=== PATIENT | male | born 2005 | race Caucasian/White ===

== ENCOUNTER → 2024-11-06 06:48 | Outpatient (REF) | payer OTHER, SELFPAY ==
[2024-11-06 07:41] LABS: % Basophils 0.6 % (0-2); % Eosinophils 1.6 % (0-6); % Immature Granulocytes 0.4 % (0-0.5); % Lymphocytes 21.1 % (20.5-51.1); % Monocytes 8.2 % (1.7-9.3); % Neutrophils 68.1 % (42.2-75.2); Absolute Basophils 0.1 10^3/uL (0-0.2); Absolute Eosinophils 0.2 10^3/uL (0-0.7); Absolute Immature Granulocytes 0.1 10^3/uL (0-0.05); Absolute Lymphocytes 2.9 10^3/uL (1.2-3.4); Absolute Monocytes 1.1 10^3/uL (0.1-0.6); Absolute Neutrophils 9.5 10^3/uL (1.4-6.5); Hematocrit 40.9 % (39.0-52.0); Hemoglobin 13.4 g/dL (13.0-18.0); Mean Corp Hgb Conc. 32.8 g/dL (33.0-37.0); Mean Corpuscular Hgb 26.4 pg (27.0-31.0); Mean Corpuscular Volume 80.5 fL (80.0-94.0); Mean Platelet Volume 10.3 fL (7.4-10.4); Nucleated Red Blood Cells % 0 % (-); Platelet Count 389 10^3/uL (130-400); Red Blood Cell Count 5.08 10^6/uL (4.70-6.10); Red Cell Dist. Width 13.7 % (11.5-14.5); White Blood Cell Count 13.9 10^3/uL (4.8-10.8)
[2024-11-06 08:15] LABS: ALT (SGPT) 20 U/L (0-50); AST (SGOT) 17 U/L (17-59); Albumin 4.7 g/dl (3.5-5.0); Alkaline Phosphatase 83 U/L (38-126); Blood Urea Nitrogen 12 mg/dl (9-20); Calcium 9.8 mg/dl (8.4-10.2); Carbon Dioxide 26 mmol/L (22-30); Chloride 105 mmol/L (98-107); Glucose 100 mg/dl (70-99); Potassium 4.5 mmol/L (3.5-5.1); Sodium 141 mmol/L (135-145); Total Bilirubin 0.5 mg/dl (0.2-1.3); Total Protein 8.2 g/dl (6.3-8.2); eGFR > 60.00
[2024-11-06 09:12] LABS: Glycohemoglobin (HgbA1c) 5.4 % (4.0-5.6)
[2024-11-07 13:34] LABS: Syphilis/T. pallidum Ab Reflex Negative (Negative)
[2024-11-07 15:13] LABS: HIV Combo Negative (Negative)
[2024-11-07 19:44] LABS: HSV 1/2 Combined Screen, IgG 0.88 IV
== END ==
LOC: REG 06:48
PROVIDERS: ATTENDING PHYSICIAN Surgery
DX: S31.839A Unspecified open wound of anus, initial encounter (principal)
CPT/HCPCS: 36415; 80053; 83036; 85025; 86694; 86780; 87389

== ENCOUNTER 2024-11-21 06:14 | Day surgery (SDC) | payer OTHER, SELFPAY ==
[2024-11-21 07:46] VITALS: BMI 34.4
[2024-11-21 07:47] VITALS: BP 127/75
[2024-11-21] MEDS: TYLENOL 1000 MG PO (07:57)
[2024-11-21] MEDS: CELEBREX 200 MG PO (07:57)
[2024-11-21] MEDS: NORMOSOL-R/PLASMALYTE-A 1000 IV (07:57)
--- NOTE | 2024-11-21 11:19 | W.IMMPOSTOP ---
Surgical Immed Post Op Note
-
Primary Surgeon: Charly Paz MD
Assisting Surgeon: Marlon Cooper MD
Pre-op Diagnosis: Anal pain, chronic perianal wound
Post-op Diagnosis: Anal pain, chronic perianal wounds, chronic perineal wound, transsphincteric fistula x 3
Procedure Performed: Exam under anesthesia, biopsy of chronic wounds x 4, placement of seton drains x 3
Anesthesia Type: Sedation
Specimen / Cultures: Posterior perianal wound biopsy, posterior anal canal wound biopsy, anterior anal canal wound biopsy, perineal wound biopsy
Estimated Blood Loss: 10 mL
Complications: None
Operative Findings: Per op note; posterior perianal wound, 2 x 3 cm, just to the right of midline extending into ischiorectal space with fistula directed radially at the dentate line, biopsied and placed seton (about 1 cm of sphincter involvement);
anal ulcer in the posterior quadrant, 1.5 x 1.5 cm, just to the right of midline, superficial, no exposed internal sphincter muscle, biopsied; anterior midline anal ulcer about 1 cm x 1 cm, superficial, no exposed internal sphincter muscle,
biopsied; in the perianal region in the anterior midline, about 1 cm from the anal verge, identified an external opening with fistulous connection to the dentate line of the AML as well as to a perineal wound midway between the base of the scrotum
and the anus, about 12 cm from the anal verge; placed seton from the AML perianal opening to the AML opening at the dentate line (about 1-1.5 cm of sphincter involvement) and placed another from the AML perianal opening to the perineal wound;
biopsied the AML anal ulcer as well as the perineal wound; there was no proctitis; there were no abscesses, erythema or purulence
[2024-11-21 11:20] VITALS: BP 119/62
--- NOTE | 2024-11-21 11:26 | OR.RPT ---
Operative Report
Operative Report
DATE OF OPERATION: 11/21/2024
SURGEON: Charly Paz MD
PREOPERATIVE DIAGNOSIS: Anal pain, chronic perianal wound
POSTOPERATIVE DIAGNOSIS: Anal pain, chronic perianal wounds, chronic perineal wound, transsphincteric perianal fistula x 3
OPERATION: Exam under anesthesia, biopsy of chronic wounds x 4, placement of seton drains x 3
ASSISTANTS:
1. Marlon Cooper MD
ANESTHESIA: Sedation with local
ESTIMATED BLOOD LOSS: 10 mL
FINDINGS:
1. Chronic wound in the posterior perianal quadrant associated with transsphincteric fistula; wound biopsied and seton placed
2. Two ulcers at the anal verge in the posterior and anterior aspect without exposed sphincter; biopsied
3. Perianal wound midway between the anus and base of scrotum associated with transsphincteric fistula; additional external opening about 1 cm distal to the anal verge in the anterior midline and internal opening at the anterior dentate line; wound
biopsied and 2 setons placed between each opening
SPECIMENS:
1. Posterior perianal wound biopsy
2. Posterior anal canal wound biopsy
3. Anterior anal canal wound biopsy
4. Perineal wound biopsy
DRAINS: Setons x 3
COMPLICATIONS: None
INDICATIONS: The patient is a 19-year-old male who presented to me in my office for chronic nonhealing perianal wounds. In June 2024, he underwent incision and drainage of a perianal abscess. This wound never completely healed. He developed
another abscess that drained on its own. In the office, he was not able to tolerate an adequate exam due to pain. Therefore, the patient was recommended to have surgery for a complete anorectal exam as well as better identification of the wounds
and if there is any fistula involvement. The operation was discussed with the patient in detail, including the risks, benefits and alternatives. Risks described included, but not limited to bleeding, infection, urinary retention, damage to nearby
structures such as the anal sphincter, fecal incontinence, recurrence, need for seton placement and anesthetic risks. The patient understood and agreed to proceed. The consent was signed and placed in the chart.
PROCEDURE IN DETAIL: The patient was taken to the operating room. Sequential compression devices were placed bilaterally. The patient was placed on the operating table in prone position. Sedation was commenced without complication. Two seat belts
were secured around the legs and upper back. The buttocks were taped apart. The perineum was shaved, prepped and draped in the usual fashion. A time-out was performed verifying the correct patient, procedure, operative site, positioning, and
special equipment.
Local anesthesia used was a mixture of 60 mL of 0.25% Marcaine with epinephrine and 0.6 mg of dexamethasone. 40 mL was injected perianally and around the perineal wound at the beginning of the case. The anorectal exam was performed assessing all
four quadrants of the anal canal using Hill-Yepez retractors in progressively increasing size. There was no abscess and no masses in the anus or distal rectum. There was no proctitis. There were no concerning internal hemorrhoids.
Externally, there was a perianal wound in the posterior quadrant, just to the right of midline, adjacent to the intersphincteric groove and extending 2-3cm deep into the ischiorectal space. The external opening was about 2 x 3 cm in size. There
was granulation tissue, no purulence. This wound was biopsied using forceps and Metzenbaum scissors. Hemostasis was achieved with electrocautery. There was a superficial ulcer at the anal verge, extending from the edge of the internal sphincter
into the anal canal. This measured about 1.5 x 1.5 cm, also just to the right of midline. There was no exposed internal sphincter muscle. There was no purulence and there was minimal granulation tissue. This was biopsied with forceps and
Metzenbaum scissors, hemostasis was achieved with electrocautery.
There was another superficial ulcer at the anal verge in the anterior quadrant, similar in appearance to the ulcer located posteriorly. This was about 1 x 1 cm. There was no sphincter muscle exposed and no purulence. There was minimal granulation
tissue. This was biopsied with forceps and Metzenbaum scissors, hemostasis achieved with electrocautery. Just distal to this ulcer was a punctate opening 1 cm distal from the anal verge and separate from the ulcer. This was probed. This was
connected to the perineal wound as well as to an internal opening at the dentate line in the anterior aspect of the anal canal. The internal opening was discovered with the assistance of dilute hydroperoxide. The perineal wound measured about 5 cm
in length and 2 cm wide. This was about midway from the anus to the base of the scrotum. I estimated about 12 cm from the anal verge. There was an abundance of granulation tissue within the wound and a small skin bridge, but no purulence or
surrounding erythema. The wound was biopsied using forceps and Metzenbaum scissors, hemostasis achieved with electrocautery.
The posterior perianal wound was also probed and a fistula was identified with the internal opening at the dentate line oriented in the posterior quadrant. I estimated about 1 cm of sphincter involvement, but unclear as to how much internal versus
external sphincter due to the altered anatomy. I placed a seton using a blue vessel loop, which was secured to itself with 3 knots of 2-0 silk ties. I ensured that this was not too tight by passing the tip of my index finger underneath it.
Regarding the anterior fistula with 3 openings (i.e.�internal opening at the anterior dentate line, external opening 1 cm from the anal verge and external opening at the perineal wound), I placed 2 setons using blue vessel loops and secured them to
themselves with 2-0 silk ties. I ensured these were not too tight by being able to pass a finger underneath it. I discussed the likely etiologies with my partner, Dr. Cooper, and based on the appearance, we both agreed that this seems most
consistent with perianal Crohn's.
The remaining 20 mL of local were injected around the wounds. Hemostasis was reassessed once more using the small Hill-Yepez and was confirmed. At this point, the procedure was complete. All needle, sponge and instrument counts were correct. The
patient tolerated the procedure well and was transferred to the recovery room in stable condition with gauze dressing in place secured with silk tape.
Of note, Marlon Cooper MD, assistant prosecuting attorney, was necessary during this procedure for traction, countertraction, and exploratory purposes. I was present for the entire duration of the case.
DICTATED BY: Charly Paz MD
[2024-11-21 11:30] VITALS: BP 114/61
[2024-11-21 11:45] VITALS: BP 115/66
[2024-11-21 12:00] VITALS: BP 109/64
[2024-11-21 12:10] VITALS: BP 103/61
== END 2024-11-21 12:20 | disposition home or self-care (01) ==
LOC: SDS 06:14
PROVIDERS: ATTENDING PHYSICIAN Surgery
DX: S31.839A Unspecified open wound of anus, initial encounter (principal); X58.XXXA Exposure to other specified factors, initial encounter; K60.30 Anal fistula, unspecified; K62.89 Other specified diseases of anus and rectum
CPT/HCPCS: 46020; 88305; 88342

== ENCOUNTER → 2024-12-06 08:45 | Outpatient (REF) | payer OTHER, SELFPAY | LOC: MRI 3T 08:45 | PROVIDERS: ATTENDING PHYSICIAN Internal Medicine Gastroenterology; FAMILY PHYSICIAN Surgery | DX: K60.30 Anal fistula, unspecified (principal) | CPT/HCPCS: 72197; A9575 ==

== ENCOUNTER 2024-12-20 06:30 | Day surgery (SDC) | payer OTHER, SELFPAY | END 2024-12-20 14:06 | disposition home or self-care (01) | LOC: GI 06:30 | PROVIDERS: ATTENDING PHYSICIAN Internal Medicine Gastroenterology | DX: K60.30 Anal fistula, unspecified (principal); K62.89 Other specified diseases of anus and rectum; K29.60 Other gastritis without bleeding | CPT/HCPCS: 45380; 88305 ==

== ENCOUNTER 2025-01-23 03:11 | Inpatient (IN) | payer OTHER, SELFPAY ==
[2025-01-22 20:55] VITALS: BP 125/87
[2025-01-22 21:16] LABS: Hematocrit 32.5 % (39.0-52.0); Hemoglobin 10.7 g/dL (13.0-18.0); Mean Corp Hgb Conc. 32.9 g/dL (33.0-37.0); Mean Corpuscular Volume 74.7 fL (80.0-94.0); Nucleated Red Blood Cells % 0 % (-); Platelet Count 468 10^3/uL (130-400); Red Cell Dist. Width 13.1 % (11.5-14.5)
[2025-01-22 21:32] LABS: ALT (SGPT) 27 U/L (0-50); AST (SGOT) 21 U/L (17-59); Albumin 4.4 g/dl (3.5-5.0); Alkaline Phosphatase 83 U/L (38-126); Blood Urea Nitrogen 7 mg/dl (9-20); Calcium 9.5 mg/dl (8.4-10.2); Carbon Dioxide 24 mmol/L (22-30); Chloride 100 mmol/L (98-107); Glucose 108 mg/dl (70-99); Lipase 29 U/L (23-300); Potassium 3.4 mmol/L (3.5-5.1); Sodium 136 mmol/L (135-145); Total Protein 8.1 g/dl (6.3-8.2); eGFR > 60.00
[2025-01-22] MEDS: TYLENOL 650 MG PO (22:04)
[2025-01-22] MEDS: ZOFRAN 4 MG IV (22:23)
[2025-01-22] MEDS: OMNIPAQUE 50 ML PO (22:24)
[2025-01-22] MEDS: NSS 1000 IV (23:20)
[2025-01-22] MEDS: MORPHINE SULFATE 4 MG IV (23:20)
[2025-01-22 23:23] VITALS: BP 126/69; BMI 33.2
--- NOTE | 2025-01-22 23:39 | ED.GENMED ---
History of Present Illness
General
Chief Complaint: Abdominal Symptoms
Source: patient
Exam Limitations: none
Time Seen by Provider: 01/22/25 22:58
Nursing documentation reviewed up to this point in time: agreed with
History of Present Illness
History of Present Illness:
Patient is a 19-year-old male with recently diagnosed Crohn's disease on Imuran who presents to the emergency department with fevers and abdominal pain. Patient reports recent diagnosis of Crohn's disease about 1 month ago where he was started on
Imuran�and is scheduled to begin Remicade in a few weeks. Patient has had somewhat chronic diarrhea since diagnosis however over the past week has developed abdominal pain, intermittent vomiting, and chills. Today�he was found to have a fever at
home and was instructed to come to the emergency department from his GI doctor given he is on an immunosuppressant.
Patient denies any upper respiratory infection symptoms including cough, sore throat, etc. He denies any dysuria or hematuria
He has had no known sick contacts.
Patient follows with Dr. Grace as his primary GI.
Review of Systems
Review of Systems
Allergies reviewed?: Yes
All Other Systems: ROS reviewed and negative except as documented in HPI and ROS
Phy Exam
Physical Exam
Physical Exam:
Vitals: Tachycardic, otherwise vital signs stable. Febrile to 102.5
General: Patient is in no acute distress.
Skin: Warm and dry, no rashes or lesions
Head: Normocephalic, atraumatic
Eyes: Sclera nonicteric. EOMs intact. No nystagmus.
Throat: Protecting airway
Neck: Normal ROM, no cervical spine tenderness, no meningismus
Cardiac: Tachycardic, normal rhythm, no murmurs.
Pulm: Normal respiratory effort, no wheezes, rales, rhonchi heard on exam
Abdomen: Abdomen soft. Mild tenderness in lower abdomen both on right and left side. No rebound tenderness or guarding. No focal tenderness McBurney's point. Negative Salguero sign.
Extremities: No evidence of cyanosis or edema
Neuro: AAOx3. Grossly intact.
Psychiatric: Normal affect.
Sepsis
Sepsis Screening
Sepsis Assessment: Sepsis
Sepsis Screen
Sepsis Screen: Sepsis
Date: 01/23/25
Time: 12:28
Course
Orders/Labs/Results
Orders:
Orders
01/22/25 21:02
IV Insert/Care/Rem.- Treatment PRN
Urinalysis Reflex To Culture Urgent
Date Specimen was Collected: 01/22/25
Time Specimen was Collected: 21:03
Blood Culture Urgent
ERICH Source: Blood/Venous
Specimen Description:
Date Specimen was Collected: 01/22/25
Time Specimen was Collected: 21:30
01/22/25 21:08
C-Reactive Protein Urgent
Comment: ADD ON
Complete Blood Count/With Diff Urgent
Comprehensive Metabolic Panel Urgent
Lipase Urgent
01/22/25 21:59
Acetaminophen [Tylenol] 650 mg PO NOW STA
01/22/25 22:20
Lactic Acid Urgent
Blood Culture Urgent
ERICH Source: Blood/Venous
Specimen Description:
Iohexol [Omnipaque] 50 ml .ROUTE .STK-MED ONE
Ondansetron Injectable [Zofran] 4 mg .ROUTE .STK-MED ONE
01/22/25 22:23
Ondansetron Injectable [Zofran] 4 mg IV NOW STA
01/22/25 22:24
Iohexol [Omnipaque] See Protocol PO NOW STA
01/22/25 23:12
Calprotectin, Fecal [S] Urgent
Date Specimen was Collected: 01/23/25
Time Specimen was Collected: 12:13
Stool Culture Urgent
ERICH Source: Feces/Stool
Specimen Description:
Date Specimen was Collected: 01/23/25
Time Specimen was Collected: 12:14
0.9% Sodium Chloride 1000 ml [Nss] 1,000 ml IV BOLUS
Morphine Sulfate 4 mg IV NOW STA
01/23/25
CT Abd/pel W Iv And Oral Contr Urgent
Reason For Exam: abd pain
01/23/25 01:11
Urine Microscopic Reflex Cult Urgent
Urine Culture Urgent
ERICH Source: U
Specimen Description:
Date Specimen was Collected: 01/22/25
Time Specimen was Collected: 21:03
01/23/25 02:17
Piperacillin/Tazo 3.375 Gram [Zosyn] 3.375 gram in 50 ml IV NOW
01/23/25 02:34
Admit/Transfer Patient As Directed
Co-Sign Provider:
Level of Care: Inpatient admission
Assign to:: Medical/Surgical
Physician / Group: Misha
Diagnosis: Acute colitis
Reason for Hospitalization: acute colitis
Expected length of stay greater than two midnights?: Yes
ELOS- Estimated Length of Stay in days: 2
I certify the patient meets the requirements for IP care: Yes
PRN Pain Medication Management As Directed
May give lesser potent ordered pain med per pt: Yes
preference::
Protocol:: Medication orders for pain may be administered in a
manner that supports deferring to patient preference
when the pt is:
- Requesting an ordered lesser potent pain medication.
Least to most potent pain medications are defined
as: acetaminophen < NSAID < tramadol < opioids
(morphine, oxycodone, hydromorphone).
- Requesting a lesser dose of the same medication IF
ORDERED.
- Requesting a less intrusive route of administration
if both routes are prescribed by the provider (PO <
IV).
01/23/25 02:36
Code Status As Directed
Resuscitation Status: Full Code
01/23/25 02:43
Potassium Chloride [KCl] 20 meq 0.9% Sodium Chloride 150 ml [Nss] 150 ml IV NOW
01/23/25 03:24
Lactated Ringers [Lr] 1,000 ml IV 100 mls/hr
01/23/25 03:31
Acetaminophen [Tylenol] 650 mg PO Q4HPRN PRN
01/23/25 04:07
HYDROmorphone [Dilaudid] 0.5 mg IV Q4HPRN PRN
Ondansetron Injectable [Zofran] 4 mg IV Q6HPRN PRN
Oxycodone [Roxicodone] 5 mg PO Q4HPRN PRN
01/23/25 04:07
Consult Notification Routine
Specialty to Notify: Gastroenterology
Date consulting provider notified: 01/23/25
Time consulting provider notified: 08:07
Notified:: Provider
GASTROINTESTINAL CONSULT Routine
Consulting Provider: Caro Hayes
Was physician already notified: No
Reason for consult: suspected severe Crohns exacerbation, patient of Dr. Grace
Activity As Directed
Activity Level: With Assistance
Vital Signs As Directed
Frequency: Per unit guidelines
DX Deep Vein Thrombosis Video Routine
01/23/25 Breakfast
NPO
Allow oral meds: Yes
Allow clear liquids: Sips of Clears
01/23/25 06:05
Basic Metabolic Panel IN AM
Complete Blood Count/No Diff IN AM
01/23/25 08:00
Azathioprine [Imuran] 150 mg PO DAILY
Piperacillin/Tazo 3.375 Gram [Zosyn] 3.375 gram in 50 ml IV Q6H
01/23/25 18:00
Enoxaparin Sodium [Lovenox] 40 mg SC QPM
Abnormal Lab Results
01/22/25 01/22/25 01/23/25
21:08 22:20 01:11
WBC 16.7 H 10^3/uL
(4.8-10.8)
RBC 4.35 L 10^6/uL
(4.70-6.10)
Hgb 10.7 L g/dL
(13.0-18.0)
Hct 32.5 L %
(39.0-52.0)
MCV 74.7 L fL
(80.0-94.0)
MCH 24.6 L pg
(27.0-31.0)
MCHC 32.9 L g/dL
(33.0-37.0)
Plt Count 468 H 10^3/uL
(130-400)
Abs Immat Gran (auto) 0.1 H 10^3/uL
(0-0.05)
Absolute Neuts (auto) 13.2 H 10^3/uL
(1.4-6.5)
Absolute Monos (auto) 1.3 H 10^3/uL
(0.1-0.6)
Neutrophils % 79.3 H %
(42.2-75.2)
Lymphocytes % 10.1 L %
(20.5-51.1)
Potassium 3.4 L mmol/L
(3.5-5.1)
BUN 7 L mg/dl
(9-20)
Glucose 108 H mg/dl
(70-99)
Lactic Acid 0.6 L mmol/L
(0.7-2.0)
C-Reactive Protein 174.30 H mg/L
(0.0-10.00)
Ur Occult Blood Reflex 2+ A
(Negative)
Leukocyte Esterase Rfl 1+ A
(Negative)
Urine WBC (Reflex) 50-60 A /HPF
(0-5)
Urine Bacteria (Reflex) Few A
(Negative)
Urine Albumin (Reflex) 1+ A
(Neg - Trace)
01/22/25 21:08
01/22/25 21:08
Vital Signs
Initial and Last Documented VS:
Initial Vital Signs
Temp Pulse Resp BP Pulse Ox
102.5 F H 128 20 125/87 97
01/22/25 20:55 01/22/25 20:55 01/22/25 20:55 01/22/25 20:55 01/22/25 20:55
Last Documented Vital Signs
Temp Pulse Resp BP Pulse Ox
99.7 F 83 16 123/63 98
01/23/25 03:46 01/23/25 03:46 01/23/25 01:26 01/23/25 03:29 01/23/25 03:30
MDM/Problems Addressed
Differential Diagnosis Includes:
Not limited to: Crohn's flare, intra-abdominal abscess, bowel perforation, appendicitis, bacteremia, colitis, etc.
MDM/Problems Addressed:
19 y.o male w/ recently dx crohns disease on imuran presenting with 1 week of abdominal pain, diarrhea, vomiting, now with fever. No urinary symptoms. Patient tachycardic and febrile on arrival. Physical exam as above.
Given known hx of crohns disease on immunosuppressant - concern for acute flare vs other intra-abdominal infection. ED plan: labs, lactic, blood cultures. Will obtain CT abdomen/pelvis. Will check stool studies and UA. Will give IVF, pain control.
Update: labs significant for leukocytosis of 16.7 as well as mild anemia and thrombocytosis - likely reactive. CRP elevated to 174.3. UA somewhat equivocal for infection. CT scan shows findings consistent with crohns flare - which is consistent with
symptoms and elevated inflammatory markers. Vital signs have normalized and temperature reduced. Given recent diagnosis as well as concern for immunosuppression - feel patient should be admitted for IV abx and further monitoring pending blood
cultures. Zosyn given in ED. Patient accepted to hospitalist service in stable condition.
Chronic conditions affecting care:
Crohn's disease
Acute Exacerbation and/or Progression of Chronic Illness:
Acute flare of Croh's disease
*Radiology
Radiology exam reviewed: radiology read reviewed
*Pulse Oximetry
SaO2: 97
Oxygen Mode of Delivery: Room air
Patient hypoxic: no
*EKG
Interpreted by ED Provider?: NA
*Critical Care Note
Total Time (30-74mins, 75-104mins- exclusive of procedures): Not Applicable
Data Reviewed
Review of Other/Old Records Reveals: Operative Reports (Colonoscopy performed 01-12 which revealed suspicion for Crohn's disease)
Patient Management
Discussion with other providers: Hospitalist
ED Attending Note
-
Portions of this chart may have been created with voice recognition software.� Occasional wrong word or��sound alike� substitutions may have occurred due to the inherent limitations of voice recognition software.
Discharge Plan
Departure
Patient Disposition: Admit
Date of Disposition: 01/23/25
Time of Disposition: 02:18
Presentation/result/management discussed w/ accepting MD/DO: Hospitalist
Discharge Problem:
Crohn disease
Interventions
Interventions:
*Risk Screen - Suicide Last Done: 01/22/25 20:52
*General Assessment Last Done: 01/22/25 20:55
*Neglect/Abuse Screening Last Done: 01/22/25 20:55
*ED- Fall Risk Assessment Last Done: 01/22/25 20:55
*ED COVID-19 Vaccine History Last Done: 01/22/25 20:55
HR-Iqbbxa-Sslfkwlohj Assessment Last Done: 01/23/25 00:30
ED- Neurological Assessment Last Done: 01/23/25 00:30
ED-Skin Assessment Last Done: 01/23/25 00:30
[2025-01-23 00:09] LABS: C-Reactive Protein 174.30 mg/L (0.0-10.00)
[2025-01-23 01:19] LABS: Urine Character Clear (Clear)
[2025-01-23 01:26] VITALS: BP 123/65
--- NOTE | 2025-01-23 01:31 | EDRN ---
Patient reports feeling better at this time, will keep patient posted, call bryan in reach, VSS
[2025-01-23 01:46] LABS: Urine Red Blood Cell None Seen /HPF (0-2); Urine White Cell 50-60 /HPF (0-5)
--- NOTE | 2025-01-23 02:28 | HPS.HSE ---
Family Physician
-
Family Physician: Charly Paz MD
Chief Complaint
-
Abdominal pain
History of Present Illness
This is a 19-year-old male with past medical history significant for intermittent episode of diarrhea status post recent colonoscopy showing likely Crohn's colitis who presents to the emergency department with 1 week of abdominal symptoms and chills.
Patient reports that he has been having chills, abdominal pain, diarrhea as well as fever for about 1 week. He does patient reports that started having symptoms of inflammatory bowel disease in June of this year. He had perianal abscess that
was drained. Then he developed anal fistula since October requiring some surgical intervention. Thereafter he had a colonoscopy by Dr. Hayes which was consistent with Crohn's disease affecting mostly the colon including the transverse descending and
proximal sigmoid colon. Was biopsied with biopsy pending. Patient was started on azathioprine 150 mg daily.
Denies bloody diarrhea. Denies melena.
In the emergency department he febrile to 102.5, blood pressure was 120/60 with a pulse of 84 and he was satting 90% on room air. He has a white count of 16,000 with hemoglobin of 10.7 and a normal platelet count. Electrolytes were unremarkable.
BUN/creatinine were normal. Glucose normal.
ESR was normal. CRP was elevated 174.3. UA was unremarkable.
CT of the abdomen pelvis showing hazy fat stranding surrounding distal descending colon with, renal loss of multiple department and also mild loss of normal colonic fold button. Several prominent subcentimeter bilateral lower quadrant reactive
ileocolic and left paracolic lymph nodes, no fistula obstruction or abscess.
Medical History
Past Medical History
Past Medical History: Reports Other (Crohn's colitis)
Past Surgical History: Reports None
Social History
Tobacco: Non-smoker
Alcohol: Occasional
Drug: None
Family History
Family History: Not pertinent
Allergies / Home Medications
Allergies reflects when Allergies were last updated in [employer].
Home Medications with original date entered in [employer]
Allergy/Medication List:
Allergies
Allergy/AdvReac Type Severity Reaction Status Date / Time
fish derived Allergy Anaphylaxis Verified 01/22/25 20:54
tree nut Allergy Anaphylaxis Verified 01/22/25 20:54
Home Medications
cetirizine 10 mg tablet (Zyrtec) 10 mg PO DAILY PRN Allergies 11/03/24
epinephrine 0.3 mg/0.3 mL injection, auto-injector (Auvi-Q) 0.3 mg IM Q5-15M PRN allergic Reaction 11/03/24
naproxen 500 mg tablet (Naprosyn) 500 mg PO BID #14 tabs 11/21/24
Review of Systems
-
Constitutional: Reports Fever and Chills
EENT: Reports No Symptoms
Respiratory: Reports No Symptoms
Cardiac: Reports No Symptoms
Abdomen/GI: Reports Abdominal Pain and Diarrhea
: Reports No Symptoms
Musculoskeletal: Reports No Symptoms
Skin: Reports No Symptoms
Neurological: Reports No Symptoms
Endocrine: Reports No Symptoms
Hematologic/Lymphatic: Reports No Symptoms
Psych: Reports No Symptoms
Physical Exam
Vital Signs
Vital Signs
Temp Pulse Resp BP Pulse Ox
98.7 F 84 16 123/65 98
01/22/25 23:33 01/23/25 01:26 01/23/25 01:26 01/23/25 01:26 01/23/25 01:26
Physical Exam
General: Well Developed, Well Nourished and No Apparent Distress
HEENT: NormoCephalic, Moist mucous membranes and Atraumatic
Respiratory: Clear
Cardiac: S1/S2 and Regular Rhythm; No Murmur or Rub
GI: Soft, Non Distended and Normal Bowel Sounds; No Organomegaly
Rectal: Deferred by Provider
Musculoskeletal: No Clubbing, No Cyanosis and No Edema
Skin: No Rash
Neuro: Nonfocal/grossly intact
Laboratory Results
-
01/22/25 21:08
01/22/25 21:08
Laboratory Results
Lactic Acid 0.6 mmol/L (0.7-2.0) L 01/22/25 22:20
Total Bilirubin 1.0 mg/dl (0.2-1.3) 01/22/25 21:08
AST 21 U/L (17-59) 01/22/25 21:08
ALT 27 U/L (0-50) 01/22/25 21:08
Alkaline Phosphatase 83 U/L (38-126) 01/22/25 21:08
Lipase 29 U/L (23-300) 01/22/25 21:08
Data Reviewed
-
CT Scan: Report Reviewed by me
Lab Data: Labs Reviewed by me
Old Records: Reviewed
Impression/Plan
-
IMPRESSION:
19-year-old who recently had colonoscopy concerning for Crohn's disease presents to the emergency department with 1 week of diarrhea, abdominal pain, fevers and chills, benign examination but found to have a CT scan consistent with Crohn's colitis.
His CRP is negative at 174.3. He has fevers, leukocytosis to 16,000. He is currently hemodynamically stable and nontoxic-appearing.
PLAN:
Acute Colitis -highly suspicious for inflammatory colitis in naive patient given CT scan and recent colonoscopy with diffuse inflammation in the proximal sigmoid colon, in the descending colon and at the splenic flexure and the transverse colon at
the hepatic flexure and in the ascending colon secondary to Crohn's disease with colonic involvement. No obstruction, fistula, abscess or perforation. Recently started on azathioprine
- admit to med/surg
- stool cultures and c diff send
- fecal calprotectin sent
- continue with IV zosyn pending results and GI eval
- continue azathioprine
- likely will need steroid/anti TNF induction
- npo, IV fluids, pain control
- GI consultation
DVT PPX - lovenox sq
Code status - Full Code
[2025-01-23] MEDS: ZOSYN 50 IV ×4 (02:31→20:16)
[2025-01-23] MEDS: KCL 160 MEQ IV (03:17)
[2025-01-23 03:29] VITALS: BP 123/63
--- NOTE | 2025-01-23 03:30 | EDRN ---
Patient is resting comfortably in bed at this time, call bryan in reach will continue to monitor
[2025-01-23] MEDS: TYLENOL 650 MG PO ×2 (03:44→12:55)
[2025-01-23] MEDS: LR 1000 IV ×2 (03:45→13:10)
[2025-01-23] MEDS: DILAUDID 0.5 MG IV ×3 (06:05→22:25)
--- NOTE | 2025-01-23 06:15 | EDRN ---
While doing morning labs patient complained of pain, medicated per order.
[2025-01-23 06:21] LABS: Hematocrit 32.9 % (39.0-52.0); Hemoglobin 10.4 g/dL (13.0-18.0); Mean Corp Hgb Conc. 31.6 g/dL (33.0-37.0); Mean Corpuscular Volume 77.0 fL (80.0-94.0); Platelet Count 451 10^3/uL (130-400); Red Cell Dist. Width 13.1 % (11.5-14.5)
[2025-01-23 07:13] LABS: Blood Urea Nitrogen 5 mg/dl (9-20); Calcium 9.4 mg/dl (8.4-10.2); Carbon Dioxide 23 mmol/L (22-30); Chloride 106 mmol/L (98-107); Estimated Creatinine Clearance > 125 ml/min; Glucose 105 mg/dl (70-99); Potassium 4.0 mmol/L (3.5-5.1); Sodium 140 mmol/L (135-145); eGFR > 60.00
[2025-01-23] MEDS: IMURAN 150 MG PO (09:29)
[2025-01-23 09:49] LABS: Iron 23 ug/dl (49-181)
[2025-01-23 09:58] LABS: Total Iron Binding Capacity 251 ug/dl (261-462)
[2025-01-23 10:29] LABS: Hepatitis B Surface Antigen Negative (Negative)
[2025-01-23 10:46] LABS: Hepatitis A Antibody, Total Positive (Negative); Hepatitis C Antibody Negative (Negative)
--- NOTE | 2025-01-23 11:37 | W.PN.UPDATE ---
Update Note
Progress Note Update
Hospitalist H&P from 0228 this morning. I have reviewed the patient's chart and personally evaluated him at the bedside in the ED.
19-year-old male with recently diagnosed Crohn's disease on colonoscopy presenting with 1 week of worsening abdomen pain and frequent watery diarrhea. Recently was started on azathioprine following diagnosis, had a history of perianal abscess that
was drained and developing fistula that required surgical intervention. States at home he had temperature of 103 �F, worsening abdomen pain upon hospital with concerns for infection. Upon arrival found to have hemoglobin of 10.7 with microcytosis,
CRP elevated at 174.3, WBC elevated at 18. Stool cultures and C. difficile obtained in the ED, as well as fecal calprotectin. Was started on IV Zosyn empirically, continued on azathioprine. Also started on IV fluids and analgesics
Well-appearing male, NAD, AO x 4. Cardiopulmonary exam benign. Reduced bowel sounds, lower quadrant abdomen tenderness without peritoneal signs. No edema, no JVD, no rashes, skin warm and dry
Crohn's colitis flare. Recently diagnosed with IBD, Crohn's disease on colonoscopy with pathology. Was started on azathioprine with some improvement though had 1 week of worsening symptoms. Anticipate he will require IV steroid versus TNF alpha
induction/maintenance. Cannot rule out concurrent infection as of now. Will follow-up C. difficile and stool culture. If negative plan for IV methylprednisolone 40 mg every 8 hours. Will likely need TNF alpha therapy such as Remicade as OP.
Ordered hepatitis panel, QuantiFERON gold in anticipation of this therapy. GI following, recommendations appreciated
Microcytic anemia. Suspect iron deficiency with associated IBD. Check iron studies, B12, folate. Plan to supplement micronutrients if needed. Trend CBC
N.p.o. for now
SQ Lovenox for DVT prophylaxis, high risk with IBD flare
Full code
Expected discharge >48 hours
[2025-01-23 12:06] LABS: Ferritin 114.0 ng/ml (17.9-464.0)
--- NOTE | 2025-01-23 12:06 | CM ---
CM reviewed chart and met with pt bedside in ED. 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
Independent in ADLs, personal care and ambulation at baseline. Recently diagnosed with Crohn's, currently on Imura and scheduled to start Remicaide.
Confirms prescription coverage.
PCP: Alexandra Salguero
Pharmacy: [facility]
Discharge plan: Anticipate home no needs.
--- NOTE | 2025-01-23 12:26 | CON.GI ---
Addendum entered and electronically signed by Caro Hayes MD 01/23/25 13:34:
I saw and examined the patient.
The TRANSIT MIX OPERATOR or PA's note was reviewed and I agree with the note.
Comment: 19-year-old male with recent diagnosis of Crohn's disease of the colon and perianal fistulas on colonoscopy by Dr. Grace 12/20/24 after presenting with nonhealing perianal fistulas since June 2024 now presenting with fevers, chills,
abdominal pain and diarrhea. Patient is a student at [employer], in June had abscesses in the rectum and perianal fistulous, had abscesses drained locally, after coming back home saw Dr. Paz from [facility] who referred her to Dr. Kingsley for
suspicion of Crohn's disease. He did have setons placed by Dr. Paz and following up with him closely. Plan as an outpatient was to start him on Remicade which he is scheduled for on 01/31 but in the interim developed diarrhia, 2-3 episodes of
loose watery nonbloody stool with mucus, poor appetite, 15 pound weight loss and increasing abdominal pain. He was started on Imuran 150 mg 01/10/2025. In the ER, temperature was noted to be 102, leukocytosis noted and CT scan of the abdomen and
pelvis with oral and IV contrast showing hazy fat stranding surrounding the distal descending colon and prominent bilateral lower quadrant and left paracolic gutter lymph nodes. No abscesses or fistulas noted.
- Fevers in the setting of underlying Crohn's disease of large bowel and perianal fistulas with setons
CT without any evidence of abscesses or fistulas.
Rule out infection versus Crohn's flare
Check stool studies for culture, C. difficile, WBC, Cryptosporidium and Giardia, also blood cultures and urine cultures pending.
Currently on Zosyn, okay for clear liquid diet without reds.
Consulted ID to rule out other causes of fever as patient will need IV steroids for acute flare of Crohn's.
He had workup as outpatient with gold QuantiFERON test which was negative in November and hepatitis serologies which were negative as well.
Already on Imuran, TPMT levels lower outpatient.
Once infectious workup negative and ID okay starting steroids, will start IV Solu-Medrol and plan for outpatient Remicade as already scheduled.
Will follow closely.
Original Note:
Consultation
-
Date/Time Consultation Requested: 01/23/25406
Date/Time Consultation Performed: 01/23/25829
Requesting Provider: Dr. Cabral
Performing Provider: Dr. Hayes/VIDAL Fitzpatrick
Reason for Consultation: crohns exacerbation
Medical History
Chief Complaint / HPI
Chief Complaint: abd pain
History of Present Illness:
19 y/o male with PMH diagnosed with chronic perianal wounds starting in June 2024 while he was away at [employer] [facility]. He saw general surgery was ultimately referred to wound care clinic as he had issues with healing. The patient had
abscesses that were drained. He also developed 3 fistulas as well. He had an EUA and there was a biopsy performed which showed ulceration, chronic and acute inflammation. No evidence of infection. He had 3 seton placed in November 2024. Colonoscopy
performed December 2024 confirmed diagnosis of Crohn's colitis with perianal involvement. One of the 3 setons were removed by colorectal surgery on 01/02/2025. There were plans for Remicade induction on 01/31/2025. Prior to this the patient was started
on Imuran 150 mg on 01/10/2025. The patient states that over the last month he has had decrease in appetite, fatigue with a 15 pound weight loss. Prior to this he had 'no signs or symptoms of Crohn's'. He usually would have 1 solid bowel movement
a day however for the past month he has had 2-3 watery stools daily with mucus in it. No signs of bleeding. He would have intermittent tenesmus. He would also have nocturnal stooling associated with cramps. He has had chills for the past week
and did develop a fever last night of 103 �F. He has had general muscle aches that he associated with his chills. He denies any nausea, vomiting, melena, hematochezia, dysphagia or odynophagia. He denies any joint pains, rashes. He does not
smoke. He drinks approximately 1 alcoholic beverage a week. He does not use marijuana. He does not use any NSAIDs.
Past Medical History
Past Medical History: Other (Crohn's colitis, perirectal abscess)
Past Surgical History: Other (I&D anal abscess, seton placement)
Social History
Tobacco: Non-Smoker
Alcohol: Occasional
Drug: None
Personal: Single
Living: With Family
Employment: Other (Student)
Family History
Family History: Other (No FH of autoimmune disease; maternal grandfather with colon ca at 90.)
Allergies / Home Medications
Allergy/AdvReac Type Severity Reaction Status Date / Time
fish derived Allergy Anaphylaxis Verified 01/22/25 20:54
tree nut Allergy Anaphylaxis Verified 01/22/25 20:54
�Medication �Instructions �Recorded
azathioprine 50 mg tablet (Imuran) 150 mg PO DAILY 01/23/25
Review of Systems
-
All other systems: A 12 pt ROS was Negative except as stated above in HPI
Vital Signs
Temp Pulse Resp BP Pulse Ox
99.7 F 83 16 123/63 98
01/23/25 03:46 01/23/25 03:46 01/23/25 01:26 01/23/25 03:29 01/23/25 03:30
Physical Exam
Exam
General: No Apparent Distress
HEENT: Anicteric
Respiratory: Clear
Cardiac: Regular Rhythm
GI: Soft, Non Tender, Non Distended and Normal Bowel Sounds
Musculoskeletal: No Edema
Skin: Warm and Dry
Neuro: AO x 3
Psych: Calm
Results
WBC 18.0 10^3/uL (4.8-10.8) H 01/23/25 06:05
Hgb 10.4 g/dL (13.0-18.0) L 01/23/25 06:05
Hct 32.9 % (39.0-52.0) L 01/23/25 06:05
MCV 77.0 fL (80.0-94.0) L 01/23/25 06:05
Plt Count 451 10^3/uL (130-400) H 01/23/25 06:05
Absolute Neuts (auto) 13.2 10^3/uL (1.4-6.5) H 01/22/25 21:08
Sodium 140 mmol/L (135-145) 01/23/25 06:05
Potassium 4.0 mmol/L (3.5-5.1) 01/23/25 06:05
Chloride 106 mmol/L (98-107) 01/23/25 06:05
Carbon Dioxide 23 mmol/L (22-30) 01/23/25 06:05
BUN 5 mg/dl (9-20) L 01/23/25 06:05
Creatinine 0.6 mg/dL (0.7-1.3) L 01/23/25 06:05
Calcium 9.4 mg/dl (8.4-10.2) 01/23/25 06:05
Total Bilirubin 1.0 mg/dl (0.2-1.3) 01/22/25 21:08
AST 21 U/L (17-59) 01/22/25 21:08
ALT 27 U/L (0-50) 01/22/25 21:08
Alkaline Phosphatase 83 U/L (38-126) 01/22/25 21:08
Lipase 29 U/L (23-300) 01/22/25 21:08
Hepatitis A IgM Ab Negative (Negative) 01/23/25 09:25
Hepatitis A Ab Total Positive (Negative) 01/23/25 09:25
Hep Bs Antibody Indeterminate 01/23/25 09:25
Hep B Core Total Ab Negative (Negative) 01/23/25 09:25
Hep B Core IgM Ab Cancelled 01/23/25 09:25
Hepatitis C Antibody Negative (Negative) 01/23/25 09:25
Diagnostic Image Results:
CT abdomen and pelvis with oral and IV contrast 01/23/2025:
IMPRESSION:
No small bowel and large bowel limited without oral contrast opacification. While hazy fat stranding surrounding the distal descending colon as well as mild regional loss of normal mucosal fold pattern in the transverse and descending colon and
several prominent subcentimeter bilateral lower quadrant and left paracolic likely reactive lymph nodes. Constellation of findings suggests the possibility of flarel of Inflammatory bowel disease

MRI pelvis 12/06/2024:
There are two transsphincteric fistulas one of which arises from the 12:00 position approximately 3.0 cm above the anal verge and which extends anteroinferiorly along the left aspect of the peroneal soft tissues. There is additional fistula which
is arises from approximately the 6:00 position 2.7 cm above the anal verge. There is no discrete abscess.
Prior GI Procedures:
EGD: None
Colonoscopy: Colonoscopy December 2024 terminal ileum normal, went to about 10 cm, diffuse inflammation characterized erosions and shallow ulcerations in the proximal sigmoid, descending, splenic flexure, transverse colon, hepatic flexure and ascending
colon. Rectum some mild inflammation as well biopsies taken. Perianal exam with fistulas and setons. 2 small polyps in the transverse colon hepatic flexure. Pathology showed polyps normal tissue. Colon with moderate active colitis with mild
architectural change. Discussion with pathology these are early chronic changes. Left colon and rectum with granulomas.
Assessment / Plan
-
19 y/o male with PMH diagnosed with chronic perianal wounds starting in June 2024, followed by [facility]. Found to have perianal 3 fistulas as well. He had an EUA and there was a biopsy performed which showed ulceration, chronic and acute
inflammation. No evidence of infection. He had 3 seton placed in November 2024. Colonoscopy performed December 2024 confirmed diagnosis of Crohn's colitis with perianal involvement. One of the 3 setons were removed by colorectal surgery on 01/02/2025.
There were plans for Remicade induction on 01/31/2025. Prior to this the patient was started on Imuran 150 mg on 01/10/2025. Patient started with 1 month history of watery stools, now with abdominal discomfort fevers and chills presenting to the
emergency room for further evaluation.
-Labs WBC 18.0, hemoglobin 10.4, hematocrit 32.9, platelets 451, MCV 77.0, MCH 24.4, iron 23, TIBC 251, percent saturation 9, ferritin 114, sodium 140, potassium 4.0, BUN 5, creatinine 0.6, glucose 105, lactic acid 0.6, total bilirubin 1.0, AST 21,
ALT 27, alk phos 83, CRP 174.3,
Hepatitis A IgM antibody negative, hepatitis A antibody total positive, hepatitis B surface antigen negative, hepatitis B surface antibody indeterminate, hepatitis B core total antibody negative, hepatitis C antibody negative.
Impression:
Crohn's colitis with history of perianal fistula
Fever
Leukocytosis
Anemia, microcytic
Plan:
-Clear liquid diet, no red
-ID consult pending
-On Zosyn currently
-Stool studies pending (fecal Julian Pro, stool C. difficile, stool culture, Giardia/cryptosporidia)
-QuantiFERON gold (pending, previously in November negative)
-Blood culture x 2 and urine culture pending
-On Lovenox for DVT ppx
-Continues on Imuran 150 mg daily
-CBC, CMP in a.m.
-After all infectious studies completed and seen by ID and cleared plan will likely be to start on systemic steroids.
-Still plans on Remicade induction as an outpatient unless needed sooner.
- Further recommendations to be forthcoming
-
-
Thank you for consultation and allowing me to participate in the patient's care. Please call the maxillofacial prosthodontist GI physician during the after hours with any questions or concerns.
[2025-01-23 12:37] LABS: Folate 13.8 ng/ml (2.76-20); Vitamin B12 573 pg/ml (239-931)
--- NOTE | 2025-01-23 14:01 | CON.ID ---
Consultation
-
Date/Time Consultation Requested: January 23919
Date/Time Consultation Performed: [facility] 1400
Requesting Provider: Dr. Darwin Reyes
Performing Provider: Dr. Lisette Colón
Reason for Consultation: Fever
Chief Complaint / Past History
Chief Complaint
Fevers
History of Present Illness
19-year-old male with recent diagnosis of Crohn's disease with perianal fistula requiring seton placement November 2024, recently started on Imuran January 10 who presented to the hospital for fever up to 103. Patient reports he has not been feeling well
for about a month with abdominal pain, poor appetite, 15 pound weight loss, diarrhea 2-3 times a day. For the past 2 weeks diarrhea has increased, the abdominal cramping/tenesmus also has gotten worse. He has been having intermittent chills for
the past week but he did not take his temperature until last night when it was noted to be 103. He denies headache, cough, shortness of breath, sore throat, sinus congestion. No urine symptoms. No joint pains. No rash. No ill contacts. He is
currently home for the summer from college. He works in software. No travel outside of home. Denies tick exposure.
Past History
Additional Past Medical History:
Crohn's on Imuran
Allergy History:
fish derived Allergy (Verified 01/22/25 20:54)
Anaphylaxis
tree nut Allergy (Verified 01/22/25 20:54)
Anaphylaxis
Medications Reviewed: Yes
Current Antibiotics:
Zosyn
Azathioprine
Social History
Tobacco: Non-Smoker
Alcohol: Occasional
Drug: None
Personal: Single
Living: With Family
Family History
Family History: Not Pertinent
Review of Systems
Review of Systems
General: Fever, Chills and Change in Appetite
HEENT: Negative Sinus Problems, Headache or Pharyngitis
Cardiovascular: Negative Chest Pain or Dyspnea
Respiratory: Negative Dyspnea or Cough
Gasteroenterology: Nausea and Diarrhea; Negative Vomiting
Genital / Urological: Negative Dysuria or Flank Pain
Endocrine: Weakness and Fatigue
Musculoskeletal: Negative Joint Pain, Joint Swelling or Arthralgias
Skin / Hair / Nails: Negative Rash
Neurological: Negative Dizziness
All systems: All other systems were reviewed and were negative
Vital Signs
Temp Pulse Resp BP Pulse Ox
101.8 F H 83 16 123/63 98
01/23/25 12:53 01/23/25 03:46 01/23/25 01:26 01/23/25 03:29 01/23/25 03:30
Selected Entries
01/22/25
20:55
Temp 102.5 F H
Physical Exam
Physical Exam
Constitutional: No Acute Distress
Head: Other (No frontal or max or sinus tenderness)
Eyes: No Conjunctival Hemorrhage and Sclera Anicteric
Cardiovascular: Regular Rate and S1/S2
Pulmonary: Clear
Gastrointestinal: Soft, Non Tender, Non Distended and Normal Bowel Sounds
Genito-Urinary: Negative Suprapubic Tenderness or CVA Tenderness
Extremities: Negative Edema
Skin: Negative Rash
Neurological: AO x 3
Lab / Diagnostic Study Results
01/23/25 06:05
01/23/25 06:05
Abs Immat Gran (auto) 0.1 10^3/uL (0-0.05) H 01/22/25 21:08
Absolute Neuts (auto) 13.2 10^3/uL (1.4-6.5) H 01/22/25 21:08
Absolute Lymphs (auto) 1.7 10^3/uL (1.2-3.4) 01/22/25 21:08
Absolute Monos (auto) 1.3 10^3/uL (0.1-0.6) H 01/22/25 21:08
Absolute Basos (auto) 0.1 10^3/uL (0-0.2) 01/22/25 21:08
Immature Gran % 0.4 % (0-0.5) 01/22/25 21:08
Neutrophils % 79.3 % (42.2-75.2) H 01/22/25 21:08
Lymphocytes % 10.1 % (20.5-51.1) L 01/22/25 21:08
Monocytes % 8.0 % (1.7-9.3) 01/22/25 21:08
Eosinophils % 1.8 % (0-6) 01/22/25 21:08
Basophils % 0.4 % (0-2) 01/22/25 21:08
Lactic Acid 0.6 mmol/L (0.7-2.0) L 01/22/25 22:20
C-Reactive Protein 174.30 mg/L (0.0-10.00) H 01/22/25 21:08
Ur Squamous Epith Cells 11-15 /LPF (Few) 01/23/25 01:11
Microbiology Results
Micro:
01/23/25 12:17 Salmonella/Shigella Culture - Pending
Feces/Stool Campylobacter Culture - Pending
Shiga Toxin Test - Pending
01/23/25 12:17 C. difficile GDH Antigen & Toxins - Pending
Feces/Stool
01/23/25 01:23 Blood Culture - Pending
Blood/Venous
01/23/25 01:11 Urine Culture - Pending
Urine
01/22/25 22:20 Blood Culture - Pending
Blood/Venous
01/23/25 CT a/p: No small bowel and large bowel limited without oral contrast opacification. While hazy fat stranding surrounding the distal descending colon as well as mild regional loss of normal mucosal fold pattern in the transverse and descending
colon and several prominent subcentimeter bilateral lower quadrant and left paracolic likely reactive lymph nodes. Constellation of findings suggests the possibility of flarel of Inflammatory bowel disease.
Assessment / Plan
# Fever
# Leukocytosis
# Abdominal cramping, diarrhea x 1 month
# Poor appetite, 50 pound weight loss x 1 month
# Recent diagnosis of Crohn's disease with perirectal fistula on Imuran since January 10.
- Suspect pt currently experiencing Crohn's flare including fever, elev WBC.
- Cultures pending.
- No objection to starting steroid while awaiting cx data.
- Can continue Zosyn for now.
- Trend temps/wbc.
- Follow clinically.
Care Review
Plan reviewed with: Other Provider (VIDAL Hillman)
--- NOTE | 2025-01-23 14:28 | PTCARENOTE ---
Patient arrived from ER reportedly on airborne isolation for unknown reason. Dr. Colón from [place] just saw the patient and said that patient does not require airborne precautions.
--- NOTE | 2025-01-23 14:54 | CON.CRS ---
Consultation
-
Date/Time Consultation Requested: 01/23/2025, 4:07
Date/Time Consultation Performed: 01/23/2025, 9:10
Requesting Provider: Toni Oliva MD
Performing Provider: Marlon Cooper MD
Reason for Consultation: colitis, crohns disease
Medical History
-
Chief Complaint: abdominal pain
History of Present Illness:
19-year-old male presents to [facility] ER complaining of pain after bowel movements as well as abdominal pain. He apparently had been having chills, diarrhea, and fevers at home for about a week. He has a known history of Crohn's disease
as well as chronic perianal wounds. He had a colonoscopy by Dr. Kingsley in 12/20/2024 which showed colon and perianal fistulas. Currently his seton drains from his surgery are still in. The plan was to start outpatient Remicade next week but he has
now developed the above symptoms as well as a 15 pound weight loss. His temperature at home was 103.0 and was 102.5 while in the ER. He states his abdominal pain is slightly improving but he is not able to eat. He currently has some nausea and
still continues to have diarrhea. His WBC is 18.0. CT of the abdomen pelvis shows hazy fat stranding surrounding the distal descending colon as well as mild visual loss of normal mucosal pattern in the transverse and descending colon and several
prominent subcentimeter bilateral lower left quadrant and left paracolic likely reactive lymph nodes. Possibility of the flaring of inflammatory bowel disease. Denies a family history of Crohn's disease otherwise. Currently he is in left lower
quadrant pain into Sara drains in place. Given the above CT findings, we have been consulted for further surgical opinion.
Past Medical History
Past Medical History: Other (Crohn's disease )
Past Surgical History: Other (Examined under esthesia with biopsy of chronic wounds x 4 and placement of seton drains x [address] Charly Paz on 11/21/2024)
Social History
Tobacco: Non-Smoker
Alcohol: Occasional
Drug: None
Family History
Family History: Reviewed & Not Pertinent
Allergies / Home Medications
Allergy/AdvReac Type Severity Reaction Status Date / Time
fish derived Allergy Anaphylaxis Verified 01/22/25 20:54
tree nut Allergy Anaphylaxis Verified 01/22/25 20:54
�Medication �Instructions �Recorded �Confirmed �Type
azathioprine 50 mg tablet (Imuran) 150 mg PO DAILY Autoimmune Disorder 01/23/25 01/23/25 History
Review of Systems
-
History Source: Patient
Constitutional: Fever and Weight Loss
Abdomen/GI: Abdominal Pain
A 10 point review of systems was completed, and was negative except as per HPI.
Physical Exam
Vital Signs
Temp 101.8 F H 01/23/25 12:53
Pulse 83 01/23/25 03:46
Resp Rate 16 01/23/25 01:26
Blood pressure 123/63 01/23/25 03:29
SaO2 98 01/23/25 03:30
01/22/25 01/23/25 01/24/25
06:59 06:59 06:59
Actual Weight 105 kg
Body Mass Index (BMI) 33.2
Lab Results / Allergies
01/23/25 06:05
01/23/25 06:05
WBC 18.0 10^3/uL (4.8-10.8) H 01/23/25 06:05
Hgb 10.4 g/dL (13.0-18.0) L 01/23/25 06:05
Hct 32.9 % (39.0-52.0) L 01/23/25 06:05
Plt Count 451 10^3/uL (130-400) H 01/23/25 06:05
Abs Immat Gran (auto) 0.1 10^3/uL (0-0.05) H 01/22/25 21:08
Neutrophils % 79.3 % (42.2-75.2) H 01/22/25 21:08
Allergy/AdvReac Type Severity Reaction Status Date / Time
fish derived Allergy Anaphylaxis Verified 01/22/25 20:54
tree nut Allergy Anaphylaxis Verified 01/22/25 20:54
Physical Exam
General: Well Developed, Well Nourished and No Apparent Distress
GI: Soft, Non Distended and Tender (Moderate left lower quadrant)
Rectal: Other (Rectal wounds from surgery well-healing, seton drains in place x 3)
Neuro: AO x 3
Psych: Calm
Data Reviewed
-
CT Scan: Image Personally Visualized and interpreted, Report Reviewed by me and Discussed with Patient
Labs: Labs Reviewed by me, Discussed with Physician and Discussed with Patient
Old Records: Reviewed
Assessment / Plan
-
Assessment:
19-year-old male with known Crohn's disease with perianal fistula status post seton placement x [address] Paz last month presents with pain after bowel movements, worsening abdominal pain, fevers,'s weight loss
Plan:
- No plans for surgery at this time, Crohn's management per GI
- Infectious disease consult
- Currently on clear liquid diet
- Continue IV Zosyn
- Stool studies pending
[2025-01-23 15:10] VITALS: BP 113/63
[2025-01-23] MEDS: SOLU-MEDROL PF 20 MG IV (16:12)
[2025-01-23] MEDS: LOVENOX 40 MG SC (18:01)
[2025-01-23 23:00] VITALS: BP 102/64
[2025-01-24] MEDS: SOLU-MEDROL PF 20 MG IV ×4 (00:05→23:15)
[2025-01-24] MEDS: LR 1000 IV ×3 (00:15→17:48)
[2025-01-24] MEDS: ZOSYN 50 IV ×2 (02:48→09:41)
[2025-01-24 07:39] LABS: Hematocrit 30.9 % (39.0-52.0); Hemoglobin 9.8 g/dL (13.0-18.0); Mean Corp Hgb Conc. 31.7 g/dL (33.0-37.0); Mean Corpuscular Volume 76.9 fL (80.0-94.0); Nucleated Red Blood Cells % 0 % (-); Platelet Count 430 10^3/uL (130-400); Red Cell Dist. Width 13.2 % (11.5-14.5)
[2025-01-24 07:47] VITALS: BP 115/69
[2025-01-24 08:17] LABS: ALT (SGPT) 20 U/L (0-50); AST (SGOT) 17 U/L (17-59); Albumin 3.9 g/dl (3.5-5.0); Alkaline Phosphatase 85 U/L (38-126); Blood Urea Nitrogen 5 mg/dl (9-20); Calcium 9.3 mg/dl (8.4-10.2); Carbon Dioxide 27 mmol/L (22-30); Chloride 103 mmol/L (98-107); Estimated Creatinine Clearance > 125 ml/min; Glucose 118 mg/dl (70-99); Potassium 4.3 mmol/L (3.5-5.1); Sodium 140 mmol/L (135-145); Total Protein 7.0 g/dl (6.3-8.2); eGFR > 60.00
[2025-01-24 08:52] LABS: C-Reactive Protein > 270.00 mg/L (0.0-10.00)
[2025-01-24] MEDS: IMURAN 150 MG PO (09:41)
--- NOTE | 2025-01-24 11:34 | CM ---
Reviewed the chart notes. CM continues to be available to patient/family and is monitoring medical plan for needs at discharge.
Plan: Discharge plans will depend on the patient's progress.
--- NOTE | 2025-01-24 11:54 | W.PN.HOSP.TC ---
Today's Communication/Plan
-
Continue IV Solu-Medrol
Follow stool culture for completeness
Likely will stop IV antibiotics
Advance diet as tolerated
Assessment / Plan
Assessment / Plan
#Crohn's colitis flare
#Chronic Crohn's disease with anorectal fistula
-Recent diagnosis with IBD, OP colonoscopy and pathology consistent
-Home regimen included azathioprine 150 mg daily, low TMPT level on OP labs
-Presented with 1 week of watery diarrhea and abdomen pain, elevated CRP
-C. difficile testing negative, stool cultures pending though low suspicion for infection
-Started on IV Solu-Medrol 20 mg every 8 hours, plans to start Remicade as OP on Wednesday
-Per GI had OP hepatitis panel and QuantiFERON that were negative, repeat send here
-Advance diet as tolerated today, if improving will plan for discharge prior to Wednesday
-Plan to discontinue IV Zosyn today if okay with ID
-Trend CBC, CRP, symptomatology on IV steroid
-GI, ID, colorectal surgery following
#Microcytic anemia
-Iron studies more consistent with inflammatory etiology than iron deficiency
-That said ferritin only 114, recent literature suggest unable to rule out iron deficiency at this range
-Will trial patient on daily ferrous sulfate, trend CBC
Diet: FLD, advance as tolerated
DVT prophylaxis: SQ Lovenox
CODE STATUS: Full code
Disposition: Likely discharge home tomorrow
Anticipated Discharge: Within 24 hours
Subjective/Interval History
-
Date of Service: January 24, 2025
Seen and examined at the bedside. No acute events reported overnight. AFVSS this morning.
White cell count downtrending, hemoglobin stable. CRP increased though patient states he clinically feels slightly better and wants to advance his diet
Denies any new complaints as of this morning. Still has abdomen pain, occasional watery stool though denies melena or hematochezia
Objective Data
-
Labs:
Laboratory Results
01/24/25
06:30
WBC 15.6 H
Hgb 9.8 L
Hct 30.9 L
Plt Count 430 H
Sodium 140
Potassium 4.3
Chloride 103
Carbon Dioxide 27
BUN 5 L
Creatinine 0.6 L
Glucose 118 H
Calcium 9.3
Total Bilirubin 0.9
AST 17
ALT 20
Alkaline Phosphatase 85
Vital Signs:
Vital Signs
Temp Pulse Resp BP Pulse Ox
97.6 F 72 16 115/69 99
01/24/25 07:47 01/24/25 07:47 01/24/25 07:47 01/24/25 07:47 01/24/25 07:47
I&O
01/23/25 01/24/25 01/25/25
06:59 06:59 06:59
Intake Total 330 / 330
Balance 330 / 330
Review of Systems
-
History Source: Patient
All other systems: Reviewed and negative
Physical Exam
-
General: Well Developed, No Apparent Distress and Other (Nontoxic)
HEENT: Normocephalic, Atraumatic, Moist Mucous Membranes and Anicteric
Respiratory: Clear to Auscultation and Non Labored Respirations; Negative Accessory Resp Muscle Use
Cardiac: Regular Rhythm and S1/S2; Negative Murmur, Rub or Gallop
GI: Soft, Nondistended, Normal Bowel Sounds and Tender (Lower quadrant, no peritoneal signs)
Musculoskeletal: No Clubbing, No Cyanosis and No Edema
Skin: Warm and Dry; Negative Rash
Neuro: AO x 3 and Nonfocal/Grossly Intact
Psych: Calm
Data Reviewed
-
Labs: Labs Reviewed by me, Discussed with Physician (Gastroenterology) and Discussed with Patient
--- NOTE | 2025-01-24 12:08 | W.PN.ID1 ---
Date of Service
Date of Service: January 24, 2025
Today's Communication
DC Zosyn
Assessment / Plan
# Fever improving
# Leukocytosis - improving
# Abdominal cramping, diarrhea x 1 month
# Poor appetite, 50 pound weight loss x 1 month
# Recent diagnosis of Crohn's disease with perirectal fistula on Imuran since January 10.
- Suspect pt currently experiencing Crohn's flare including fever, elev WBC.
- Cultures neg to date
- Continue steroid as per GI.
- DC Zosyn
-Follow temps
Chief Complaint
-: Fever
Subjective / Review of Systems
Appetite improvng. Stable diarrhea.
Vital Signs / Physical Exam
Vital Signs
Vital Signs
Temp Pulse Resp BP Pulse Ox
97.6 F 72 16 115/69 99
01/24/25 07:47 01/24/25 07:47 01/24/25 07:47 01/24/25 07:47 01/24/25 07:47
Physical Exam
Constitutional: No Acute Distress and Comfortable
Cardiovascular: Regular Rate and S1/S2
Pulmonary: Clear
Gastrointestinal: Soft, Non Tender, Non Distended and Normal Bowel Sounds
Extremities: Negative Edema
Neurological: AO x 3
Objective Data
Lab Data
Lab Results
01/24/25 06:30
01/24/25 06:30
Estimated Creat Clear > 125 ml/min 01/24/25 06:30
Lactic Acid 0.6 mmol/L (0.7-2.0) L 01/22/25 22:20
Total Bilirubin 0.9 mg/dl (0.2-1.3) 01/24/25 06:30
AST 17 U/L (17-59) 01/24/25 06:30
ALT 20 U/L (0-50) 01/24/25 06:30
Alkaline Phosphatase 85 U/L (38-126) 01/24/25 06:30
C-Reactive Protein > 270.00 mg/L (0.0-10.00) H 01/24/25 06:30
Most recent labs reviewed.
Micro Results:
01/23/25 01:11 Urine Culture - Final
Urine
01/23/25 01:23 Blood Culture - Preliminary
Blood/Venous No Growth in 24 hours- Final report to follow
01/22/25 22:20 Blood Culture - Preliminary
Blood/Venous No Growth in 24 hours- Final report to follow
01/23/25 12:17 Cryptosporidium/Giardia - Final
Feces/Stool Negative for Cryptosporidium and/or Giardia Lamblia
antigens.
01/23/25 12:17 C. difficile GDH Antigen & Toxins - Final
Feces/Stool Negative for toxigenic C.difficile
01/23/25 12:17 Salmonella/Shigella Culture - Pending
Feces/Stool Campylobacter Culture - Pending
Shiga Toxin Test - Pending
01/23/25 CT a/p: No small bowel and large bowel limited without oral contrast opacification. While hazy fat stranding surrounding the distal descending colon as well as mild regional loss of normal mucosal fold pattern in the transverse and descending
colon and several prominent subcentimeter bilateral lower quadrant and left paracolic likely reactive lymph nodes. Constellation of findings suggests the possibility of flarel of Inflammatory bowel disease.
Care Review
Plan reviewed with: Physician (Dr. Minor)
[2025-01-24] MEDS: DILAUDID 0.5 MG IV ×2 (12:29→20:29)
--- NOTE | 2025-01-24 13:38 | W.PN.GI.CBS2 ---
Today's Communication / Plan
-
Plan:
Currently symptomatic improvement on methylprednisone 20 mg IV every 8 hours, started 01/23/2025 but continues to have intermittent abdominal discomfort. Discussed with patient briefly regarding possible Bentyl for abdominal cramping but reviewing
data and reviewing with , would avoid Bentyl and active Crohn's flare.
Leukocytosis improving, stool studies for C. difficile, Cryptosporidium and Giardia negative and cultures pending, antibiotics stopped as well.
Elevated C-reactive protein iron indices low suggesting deficiency.
If tolerating full liquid diet without any significant discomfort in the abdomen, will start him on low residue diet.
Continue Imuran 150 mg daily, once diarrhea and abdominal pain are improved, will switch methylprednisone to prednisone 40 mg p.o. daily.
Hepatitis B surface antigen negative but antibody indeterminate, might need booster shot. Hepatitis C antibody negative.
-QuantiFERON gold (pending, previously in November negative)
-Blood culture x 2 and urine culture essentially unremarkable
-On Lovenox for DVT ppx
Continue to trend CBC and CMP
-Still plans on Remicade induction as an outpatient, Dr. Grace trying to move up his Remicade infusion to sooner than 01/31.
Assessment / Plan
-
19 y/o male with PMH diagnosed with chronic perianal wounds starting in June 2024, followed by CRS. Found to have perianal 3 fistulas as well. He had an EUA and there was a biopsy performed which showed ulceration, chronic and acute
inflammation. No evidence of infection. He had 3 seton placed in November 2024. Colonoscopy performed December 2024 confirmed diagnosis of Crohn's colitis with perianal involvement. One of the 3 setons were removed by colorectal surgery on 01/02/2025.
There were plans for Remicade induction on 01/31/2025. Prior to this the patient was started on Imuran 150 mg on 01/10/2025. Patient started with 1 month history of watery stools, now with abdominal discomfort fevers and chills presenting to the
emergency room for further evaluation.
-Labs WBC 18.0, hemoglobin 10.4, hematocrit 32.9, platelets 451, MCV 77.0, MCH 24.4, iron 23, TIBC 251, percent saturation 9, ferritin 114, sodium 140, potassium 4.0, BUN 5, creatinine 0.6, glucose 105, lactic acid 0.6, total bilirubin 1.0, AST 21,
ALT 27, alk phos 83, CRP 174.3,
Hepatitis A IgM antibody negative, hepatitis A antibody total positive, hepatitis B surface antigen negative, hepatitis B surface antibody indeterminate, hepatitis B core total antibody negative, hepatitis C antibody negative.
Impression:
Crohn's colitis with history of perianal fistula
Fever
Leukocytosis
Anemia, microcytic
Plan:
Currently symptomatic improvement on methylprednisone 20 mg IV every 8 hours, started 01/23/2025 but continues to have intermittent abdominal discomfort. Discussed with patient briefly regarding possible Bentyl for abdominal cramping but reviewing
data and reviewing with , would avoid Bentyl and active Crohn's flare.
Leukocytosis improving, stool studies for C. difficile, Cryptosporidium and Giardia negative and cultures pending, antibiotics stopped as well.
Elevated C-reactive protein iron indices low suggesting deficiency.
If tolerating full liquid diet without any significant discomfort in the abdomen, will start him on low residue diet.
Continue Imuran 150 mg daily, once diarrhea and abdominal pain are improved, will switch methylprednisone to prednisone 40 mg p.o. daily.
Hepatitis B surface antigen negative but antibody indeterminate, might need booster shot. Hepatitis C antibody negative.
-QuantiFERON gold (pending, previously in November negative)
-Blood culture x 2 and urine culture essentially unremarkable
-On Lovenox for DVT ppx
Continue to trend CBC and CMP
-Still plans on Remicade induction as an outpatient, Dr. Grace trying to move up his Remicade infusion to sooner than 01/31.
Subjective
Subjective
Date of Service: January 24, 2025
Patient complains of some lower abdominal discomfort on and off, no nausea or vomiting. He did have 2 loose bowel movements without any blood. No fevers or chills today.
Objective
Data Reviewed
Laboratory Data:
Laboratory Results
01/24/25 06:30
01/24/25 06:30
Laboratory Results
Total Bilirubin 0.9 mg/dl (0.2-1.3) 01/24/25 06:30
AST 17 U/L (17-59) 01/24/25 06:30
ALT 20 U/L (0-50) 01/24/25 06:30
Alkaline Phosphatase 85 U/L (38-126) 01/24/25 06:30
Lipase 29 U/L (23-300) 01/22/25 21:08
Vital Signs and I&O:
Vital Signs
Temp Pulse Resp BP Pulse Ox
97.6 F 72 16 115/69 99
01/24/25 07:47 01/24/25 07:47 01/24/25 07:47 01/24/25 07:47 01/24/25 07:47
I&O
01/23/25 01/24/25 01/25/25
06:59 06:59 06:59
Intake Total 330 / 330
Balance 330 / 330
Physical Exam
Physical Exam
GI: Soft, Non Distended and Tender (Discomfort on palpation of the lower abdomen without guarding or rigidity)
[2025-01-24 15:14] VITALS: BP 113/61
[2025-01-24] MEDS: LOVENOX 40 MG SC (17:45)
[2025-01-24 23:05] VITALS: BP 122/68
[2025-01-24] MEDS: ROXICODONE 5 MG PO (23:14)
[2025-01-25] MEDS: DILAUDID 0.5 MG IV (00:52)
[2025-01-25] MEDS: LR 1000 IV (06:00)
[2025-01-25 07:00] VITALS: BP 113/66
[2025-01-25 08:09] LABS: Hematocrit 33.1 % (39.0-52.0); Hemoglobin 10.4 g/dL (13.0-18.0); Mean Corp Hgb Conc. 31.4 g/dL (33.0-37.0); Mean Corpuscular Volume 77.2 fL (80.0-94.0); Nucleated Red Blood Cells % 0 % (-); Platelet Count 428 10^3/uL (130-400); Red Cell Dist. Width 13.2 % (11.5-14.5)
[2025-01-25] MEDS: IMURAN 150 MG PO (08:26)
[2025-01-25] MEDS: SOLU-MEDROL PF 20 MG IV ×2 (08:27→15:32)
[2025-01-25 08:39] LABS: Blood Urea Nitrogen 8 mg/dl (9-20); Calcium 9.6 mg/dl (8.4-10.2); Carbon Dioxide 25 mmol/L (22-30); Chloride 106 mmol/L (98-107); Estimated Creatinine Clearance > 125 ml/min; Glucose 128 mg/dl (70-99); Potassium 4.9 mmol/L (3.5-5.1); Sodium 140 mmol/L (135-145); eGFR > 60.00
[2025-01-25 08:47] LABS: C-Reactive Protein 148.10 mg/L (0.0-10.00)
--- NOTE | 2025-01-25 13:13 | W.PN.HOSP.TC ---
Today's Communication/Plan
-
Discharge today
Prednisone 20 mg x 1 this evening
Prednisone 40 mg daily starting tomorrow
Follow-up in office with GI tomorrow to begin Remicade
Low residue diet
Assessment / Plan
Assessment / Plan
#Crohn's colitis flare
#Chronic Crohn's disease with anorectal fistula
-Recent diagnosis with IBD, OP colonoscopy and pathology consistent
-Home regimen included azathioprine 150 mg daily, low TMPT level on OP labs
-Presented with 1 week of watery diarrhea and abdomen pain, elevated CRP
-C. difficile testing negative, stool cultures pending though low suspicion for infection
-Started on IV Solu-Medrol 20 mg every 8 hours, plans to start Remicade as OP on Wednesday
-Per GI had OP hepatitis panel and QuantiFERON that were negative, repeat send here
-Trend CBC, CRP, symptomatology on IV steroid
-GI, ID, colorectal surgery following
#Microcytic anemia
-Iron studies more consistent with inflammatory etiology than iron deficiency
-That said ferritin only 114, recent literature suggest unable to rule out iron deficiency at this range
-Will trial patient on daily ferrous sulfate, trend CBC
Diet: FLD, advance as tolerated
DVT prophylaxis: SQ Lovenox
CODE STATUS: Full code
Disposition: Likely discharge home tomorrow
Anticipated Discharge: Today
Subjective/Interval History
-
Date of Service: January 25, 2025
Seen and examined at the bedside. Overnight had some abdomen pain though similar to previous episodes. No other events. AFVSS this morning
Patient states he feels well this morning, tolerating breakfast
Denies any new complaints
Objective Data
-
Labs:
Laboratory Results
01/25/25 01/25/25
07:38 07:39
WBC 16.2 H
Hgb 10.4 L
Hct 33.1 L
Plt Count 428 H
Sodium 140
Potassium 4.9
Chloride 106
Carbon Dioxide 25
BUN 8 L
Creatinine 0.4 L
Glucose 128 H
Calcium 9.6
Vital Signs:
Vital Signs
Temp Pulse Resp BP Pulse Ox
98 F 47 18 113/66 100
01/25/25 07:00 01/25/25 07:00 01/25/25 07:00 01/25/25 07:00 01/25/25 07:00
I&O
01/24/25 01/25/25 01/26/25
06:59 06:59 06:59
Intake Total 330 / 330 2520 / 2520
Balance 330 / 330 2520 / 2520
Review of Systems
-
History Source: Patient
All other systems: Reviewed and negative
Physical Exam
-
General: Well Developed, No Apparent Distress and Comfortable
HEENT: Normocephalic, Atraumatic, Moist Mucous Membranes and Anicteric
Respiratory: Clear to Auscultation and Non Labored Respirations; Negative Accessory Resp Muscle Use
Cardiac: Regular Rhythm and S1/S2; Negative Murmur, Rub or Gallop
GI: Soft, Nontender, Nondistended and Normal Bowel Sounds
Musculoskeletal: No Clubbing, No Cyanosis and No Edema
Skin: Warm, Dry and Normal Turgor; Negative Rash
Neuro: AO x 3 and Nonfocal/Grossly Intact
Psych: Calm
Data Reviewed
-
Labs: Labs Reviewed by me and Discussed with Patient
--- NOTE | 2025-01-25 13:36 | W.PN.ID1 ---
Date of Service
Date of Service: January 25, 2025
Today's Communication
ID will sign off.
Assessment / Plan
# Crohn's flare
# Fever resolved
# Leukocytosis - stable (on steroid)
# Abdominal cramping, diarrhea x 1 month
# Poor appetite, 50 pound weight loss x 1 month
# Recent diagnosis of Crohn's disease with perirectal fistula on Imuran since January 10.
- Cultures neg t
- Continue steroid as per GI.
- Observe off abx.
IID will sign off.
Chief Complaint
-: Other (Crohn's flare)
Subjective / Review of Systems
Had abd pain last night, now resolved. watery stool 2x/d
Vital Signs / Physical Exam
Vital Signs
Vital Signs
Temp Pulse Resp BP Pulse Ox
98 F 47 18 113/66 100
01/25/25 07:00 01/25/25 07:00 01/25/25 07:00 01/25/25 07:00 01/25/25 07:00
Physical Exam
Constitutional: No Acute Distress and Comfortable
Cardiovascular: Regular Rate and S1/S2
Pulmonary: Clear
Gastrointestinal: Soft, Non Tender, Non Distended and Normal Bowel Sounds
Extremities: Negative Edema
Neurological: AO x 3
Objective Data
Lab Data
Lab Results
01/25/25 07:38
01/25/25 07:39
Estimated Creat Clear > 125 ml/min 01/25/25 07:39
Lactic Acid 0.6 mmol/L (0.7-2.0) L 01/22/25 22:20
Total Bilirubin 0.9 mg/dl (0.2-1.3) 01/24/25 06:30
AST 17 U/L (17-59) 01/24/25 06:30
ALT 20 U/L (0-50) 01/24/25 06:30
Alkaline Phosphatase 85 U/L (38-126) 01/24/25 06:30
C-Reactive Protein 148.10 mg/L (0.0-10.00) H 01/25/25 07:39
Most recent labs reviewed.
Micro Results:
01/23/25 12:17 Salmonella/Shigella Culture - Final
Feces/Stool No Salmonella, Shigella, Aeromonas or Plesiomonas species
isolated.
Campylobacter Culture - Final
No Campylobacter species isolated.
Shiga Toxin Test - Final
No E. coli Shiga Toxin 1 or 2 detected.
01/23/25 01:23 Blood Culture - Preliminary
Blood/Venous No Growth in 48 hours- Final report to follow
01/22/25 22:20 Blood Culture - Preliminary
Blood/Venous No Growth in 48 hours- Final report to follow
01/23/25 01:11 Urine Culture - Final
Urine
01/23/25 12:17 Cryptosporidium/Giardia - Final
Feces/Stool Negative for Cryptosporidium and/or Giardia Lamblia
antigens.
01/23/25 12:17 C. difficile GDH Antigen & Toxins - Final
Feces/Stool Negative for toxigenic C.difficile
01/23/25 CT a/p: No small bowel and large bowel limited without oral contrast opacification. While hazy fat stranding surrounding the distal descending colon as well as mild regional loss of normal mucosal fold pattern in the transverse and descending
colon and several prominent subcentimeter bilateral lower quadrant and left paracolic likely reactive lymph nodes. Constellation of findings suggests the possibility of flarel of Inflammatory bowel disease.
--- NOTE | 2025-01-25 14:33 | W.PN.GI.CBS2 ---
Today's Communication / Plan
-
Plan:
Currently symptomatic improvement on methylprednisone 20 mg IV every 8 hours, started 01/23/2025 but continues to have intermittent abdominal discomfort. Discussed with patient briefly regarding possible Bentyl 01/24/25 for abdominal cramping but
reviewing data and reviewing with , would avoid Bentyl and active Crohn's flare.
Leukocytosis improving, stool studies for C. difficile, Cryptosporidium and Giardia negative and cultures negative, antibiotics stopped as well.
No fevers or chills.
Tolerating low residue diet
CRP significantly improved
I would finish 2 doses of Solu-Medrol today and give prednisone 20 mg for tonight and starting tomorrow prednisone 40 mg daily until seen by Dr. Grace.
He has Remicade infusion tomorrow scheduled in the office and another one 2 weeks after prior to him going back to school.
Continue Imuran 150 mg daily, once diarrhea and abdominal pain are improved, will switch methylprednisone to prednisone 40 mg p.o. daily.
Hepatitis B surface antigen negative but antibody indeterminate, might need booster shot. Hepatitis C antibody negative.
-QuantiFERON gold (pending, previously in November negative)
-Blood culture x 2 and urine culture essentially unremarkable
-On Lovenox for DVT ppx
Okay to be discharged and follow-up as an outpatient. Patient understands that if there is fevers or chills or if abdominal pain or diarrhea is worse, need to come to the emergency room and contact our office as well.
Assessment / Plan
-
19 y/o male with PMH diagnosed with chronic perianal wounds starting in June 2024, followed by CRS. Found to have perianal 3 fistulas as well. He had an EUA and there was a biopsy performed which showed ulceration, chronic and acute
inflammation. No evidence of infection. He had 3 seton placed in November 2024. Colonoscopy performed December 2024 confirmed diagnosis of Crohn's colitis with perianal involvement. One of the 3 setons were removed by colorectal surgery on 01/02/2025.
There were plans for Remicade induction on 01/31/2025. Prior to this the patient was started on Imuran 150 mg on 01/10/2025. Patient started with 1 month history of watery stools, now with abdominal discomfort fevers and chills presenting to the
emergency room for further evaluation.
-Labs WBC 18.0, hemoglobin 10.4, hematocrit 32.9, platelets 451, MCV 77.0, MCH 24.4, iron 23, TIBC 251, percent saturation 9, ferritin 114, sodium 140, potassium 4.0, BUN 5, creatinine 0.6, glucose 105, lactic acid 0.6, total bilirubin 1.0, AST 21,
ALT 27, alk phos 83, CRP 174.3,
Hepatitis A IgM antibody negative, hepatitis A antibody total positive, hepatitis B surface antigen negative, hepatitis B surface antibody indeterminate, hepatitis B core total antibody negative, hepatitis C antibody negative.
Impression:
Crohn's colitis with history of perianal fistula
Fever
Leukocytosis
Anemia, microcytic
Plan:
Currently symptomatic improvement on methylprednisone 20 mg IV every 8 hours, started 01/23/2025 but continues to have intermittent abdominal discomfort. Discussed with patient briefly regarding possible Bentyl 01/24/25 for abdominal cramping but
reviewing data and reviewing with , would avoid Bentyl and active Crohn's flare.
Leukocytosis improving, stool studies for C. difficile, Cryptosporidium and Giardia negative and cultures negative, antibiotics stopped as well.
No fevers or chills.
Tolerating low residue diet
CRP significantly improved
I would finish 2 doses of Solu-Medrol today and give prednisone 20 mg for tonight and starting tomorrow prednisone 40 mg daily until seen by Dr. Grace.
He has Remicade infusion tomorrow scheduled in the office and another one 2 weeks after prior to him going back to school.
Continue Imuran 150 mg daily, once diarrhea and abdominal pain are improved, will switch methylprednisone to prednisone 40 mg p.o. daily.
Hepatitis B surface antigen negative but antibody indeterminate, might need booster shot. Hepatitis C antibody negative.
-QuantiFERON gold (pending, previously in November negative)
-Blood culture x 2 and urine culture essentially unremarkable
-On Lovenox for DVT ppx
Okay to be discharged and follow-up as an outpatient. Patient understands that if there is fevers or chills or if abdominal pain or diarrhea is worse, need to come to the emergency room and contact our office as well.
Subjective
Subjective
Date of Service: January 25, 2025
Patient reports having 1 dark bowel movement last night, semiformed. None this morning. Some abdominal discomfort in the lower abdomen like before, nothing worse. No fevers or chills.
Objective
Data Reviewed
Laboratory Data:
Laboratory Results
01/25/25 07:38
01/25/25 07:39
Laboratory Results
Total Bilirubin 0.9 mg/dl (0.2-1.3) 01/24/25 06:30
AST 17 U/L (17-59) 01/24/25 06:30
ALT 20 U/L (0-50) 01/24/25 06:30
Alkaline Phosphatase 85 U/L (38-126) 01/24/25 06:30
Lipase 29 U/L (23-300) 01/22/25 21:08
Vital Signs and I&O:
Vital Signs
Temp Pulse Resp BP Pulse Ox
98 F 47 18 113/66 100
01/25/25 07:00 01/25/25 07:00 01/25/25 07:00 01/25/25 07:00 01/25/25 07:00
I&O
01/24/25 01/25/25 01/26/25
06:59 06:59 06:59
Intake Total 330 / 330 2520 / 2520
Balance 330 / 330 2520 / 2520
Physical Exam
Physical Exam
GI: Soft, Non Distended and Non Tender
[2025-01-25 15:15] VITALS: BP 97/63
[2025-01-25] MEDS: ROXICODONE 5 MG PO (15:32)
[2025-01-25] MEDS: LR IV (16:41)
[2025-01-25] MEDS: LOVENOX SC (16:44)
--- NOTE | 2025-01-26 12:31 | W.DCSUMMARY ---
Discharge Summary
Discharge Data
Date of Admission: 01/23/25
Date of Discharge: 01/25/25
Total time spent discharging patient (in min): 34
-
Pending Results: No
Hospital Course
Discharging Physician : Brett Minor DO
Disposition : Home
Principal Discharge diagnosis :
Crohn's disease flare
Diarrhea and abdomen pain
Iron deficiency anemia
Chronic Discharge diagnosis :
Recently diagnosed Crohn's disease
History of anorectal fistula
Hospital Course :
19-year-old male that presented to the hospital with abdomen pain and diarrhea. Symptoms occurred over 1 to 2 weeks. Recently diagnosed with Crohn's disease as an outpatient via biopsy on colonoscopy. Was on azathioprine 150 mg daily with
suboptimal control. Also reported high-grade fever at home. Upon arrival stool studies with C. difficile testing and stool culture were performed. Testing ultimately returned negative for signs of infection. Was started on IV Solu-Medrol 20 mg
every 8 hours with clinical improvement, downtrending CRP. Evaluated by gastroenterology in the hospital who recommended OP follow-up in office on 01/26/2025 for initiation of Remicade. Repeat viral hepatitis panel in [facility] were sent
prior to initiating anti-TNF alpha therapy. At time of discharge was continued on azathioprine 150 mg daily, prednisone 50 mg daily. Scheduled to start Remicade in office on 01/26/2025. Of note, was discharged on oral iron supplement for signs of
iron deficiency.
Consultants:
Gastroenterology: Caro Hayes MD
Important imaging findings :
CT A/P with IV and oral contrast (01/23/2025)
IMPRESSION: No small bowel and large bowel limited without oral contrast opacification. While hazy fat stranding surrounding the distal descending colon as well as mild regional loss of normal mucosal fold pattern in the transverse and descending
colon and several prominent subcentimeter bilateral lower quadrant and left paracolic likely reactive lymph nodes. Constellation of findings suggests the possibility of flarel of Inflammatory bowel disease.
Procedure findings : N/A
Follow-up :
-Family doctor within 1 week of discharge from hospital
-Manager Of Employee Relations on 01/26/2025 to begin Remicade
Discharge Plan
-
Patient Disposition: Home (Routine Discharge)
Discharge Diagnosis/Procedures: Crohn's colitis
IBD flare
Condition: Good
Diet: Low Residue
Activity: As tolerated
Driving Restrictions: No driving for 24 hours
Bathing Restrictions: None
Blood Work: N/A
Others Tests: N/A
Activity Restrictions/Additional Instructions:
Follow-up in office with gastroenterology tomorrow for initiation of Remicade
Follow-up with your family doctor within 1 week of discharge from hospital
Referrals:
Janelle Grace MD [Active, Gastroenterology] - in one day
Charly Paz MD [Family Provider, ColoRectal]
Additional Discharge Medication Instructions: Take 1 tablet of prednisone 20 mg this evening
Starting tomorrow morning take 40 mg of prednisone daily (this dose will be reduced over time by gastroenterology)
Follow-up in office with the shafting cleaner tomorrow for infusion of Remicade
Continue azathioprine
Prescriptions:
New
prednisone 20 mg tablet
20 mg PO ONCE Qty: 1 0RF
prednisone 20 mg tablet
40 mg PO DAILY 7 Days Qty: 14 0RF
Continued
azathioprine [Imuran] 50 mg Tablet
150 mg PO DAILY
Discharge Orders:
Discharge Patient (As Directed); Ordered 01/25/25
Ordered By: Brett Minor
Discharge Date and Time
Discharge Date/Time: 01/25/25 17:24
Print Language: OCCITAN
[2025-01-30 21:53] LABS: Calprotectin, Fecal 1630 ug/g (<=49)
== END 2025-01-25 17:24 | disposition home or self-care (01) | DRG 387 ==
LOC: 2 NORTH 03:11
PROVIDERS: Emergency Medicine; Nurse Practitioner; Physician Assistant; ADMITTING PHYSICIAN Internal Medicine; ATTENDING PHYSICIAN Internal Medicine; CONSULT PHYSICIAN Internal Medicine Gastroenterology; CONSULT PHYSICIAN Internal Medicine Infectious Disease; EMERGENCY PHYSICIAN Emergency Medicine; FAMILY PHYSICIAN Surgery; OTHER PHYSICIAN Surgery
DX: K50.113 Crohn's disease of large intestine with fistula (principal); D50.9 Iron deficiency anemia, unspecified; H54.7 Unspecified visual loss; Z86.0100 Personal history of colon polyps, unspecified; Z79.624 Long term (current) use of inhibitors of nucleotide synthesis; Z91.018 Allergy to other foods
CPT/HCPCS: 74177; 80048; 80053; 81003; 81015; 82607; 82728; 82746; 83540; 83550; 83605; 83690; 83993; 85025; 85027; 86140; 86480; 86704; 86706; 86708; 86709; 86803; 87040; 87045; 87046; 87086; 87324; 87328; 87329; 87340; 87427; 87449; J7500; Q9967

== ENCOUNTER → 2025-02-09 12:22 | Outpatient (REF) | payer OTHER, SELFPAY | LOC: PAVMRI 12:22 | PROVIDERS: ATTENDING PHYSICIAN Internal Medicine Gastroenterology; FAMILY PHYSICIAN Family Medicine | DX: K52.9 Noninfective gastroenteritis and colitis, unspecified (principal); L98.8 Other specified disorders of the skin and subcutaneous tissue | CPT/HCPCS: 72197; 74183; A9575 ==